=== PATIENT | female | born 1965 | race Caucasian/White ===

== ENCOUNTER 2020-09-13 01:01 | Emergency (ER) | payer OTHER, MEDICARE ==
[2020-09-13 02:16] LABS: HEMOGLOBIN 14.3 gm/dl (12.3-15.3); RED BLOOD COUNT 4.59 M/UL (4.00-5.10); WHITE BLOOD COUNT 14.5 K/UL (4.5-11.0)
[2020-09-13 02:28] LABS: BUN/CREATININE RATIO 13 (0-10)
== END 2020-09-13 03:00 | disposition short-term general hospital (02) ==
LOC: ER1 01:01
PROVIDERS: Family Medicine
DX: S32.511A Fracture of superior rim of right pubis, initial encounter for closed fracture (principal); S52.502A Unspecified fracture of the lower end of left radius, initial encounter for closed fracture; V29.50XA Motorcycle passenger injured in collision with unspecified motor vehicles in traffic accident, initial encounter
CPT/HCPCS: 29125; 71045; 72170; 73090; 73110; 73130; 80053; 85025; 96374; 99284